=== PATIENT | male | born 1960 | race African-American/Black ===

== ENCOUNTER → 2022-10-07 | Outpatient (CLI) | payer MEDICARE ==
[~2022-10-07] MED LIST: ALLO300T PO; AMLO-170 PO; ASPI-929 PO; ATOR20TA PO; CALC0.25 PO; CALC0.5C9 PO; CARV25TA PO; CILO100T3 PO; CLON0.1T PO; CLOP-28 PO; CYCL5TAB PO; DOCU-123 PO; FURO20TA3 PO; FURO40TA4 PO; FURO80TA PO; GABA600T7 PO; GLYC10.7 PO; HYDR-3101 PO; HYDR-3194 PO; INSU100I18 SQ; INSU100V13 SQ; INSU200I4 SQ; LEVO25TA4 PO; LOSA100T14 PO; LOSA50TA14 PO; MAGN400O7 PO; METO100T7 PO; OMEP40CA8 PO; POTA-148 PO; PRAV40TA2 PO; ROPI0.5T PO; SPIR50TA PO
[2022-10-07 11:59] LABS: BILIRUBIN,URINE NEGATIVE (NEGATIVE); UROBILINOGEN,URINE 0.2 E.U./dL (0.2)
[2022-10-07 12:10] LABS: YEAST,URINE FEW (NONE SEEN)
== END | disposition home or self-care (01) ==
LOC: NPLAB 11:37
PROVIDERS: ATTEND Internal Medicine
DX: N18.4 Chronic kidney disease, stage 4 (severe) (principal); N39.0 Urinary tract infection, site not specified
CPT/HCPCS: 81001; 87086

== ENCOUNTER → 2022-10-26 | Outpatient (CLI) | payer MEDICARE ==
[2022-10-26 10:09] LABS: BILIRUBIN,URINE NEGATIVE (NEGATIVE); UROBILINOGEN,URINE 0.2 E.U./dL (0.2)
== END | disposition home or self-care (01) ==
LOC: NPLAB 09:29
PROVIDERS: ATTEND Internal Medicine
DX: N18.4 Chronic kidney disease, stage 4 (severe) (principal); N39.0 Urinary tract infection, site not specified
CPT/HCPCS: 81001; 87086